=== PATIENT | male | born 1945 | race Caucasian/White ===

== ENCOUNTER 2021-10-27 15:00 | Outpatient (RCR) | payer MEDICARE, BC, SELFPAY ==
[2021-10-24 11:31] LABS: Basophils Absolute Auto 0.02 K/uL (0.00-0.30); Basophils Percent Auto 0.3 % (0.0-3.0); Eosinophils Absolute Auto 0.16 K/uL (0.00-0.50); Eosinophils Percent Auto 2.7 % (0.0-7.0); Hematocrit 35.1 % (37.0-53.0); Hemoglobin* 11.5 gm/dL (13.5-17.5); Immature Granulocytes Abs Auto 0.02 K/uL (0.00-0.30); Lymphocytes Percent Auto 17.8 % (20-44); Mean Corpuscular HGB Conc 33 gm/dL (32-36); Mean Corpuscular Hemoglobin 29 pg (26-34); Mean Corpuscular Volume 89 fL (80-100); Monocytes Percent Auto 7.5 % (0.0-11.0); Neutrophils Absolute Auto 4.15 K/uL (1.7-7.0); Neutrophils Percent Auto 71.4 % (42.0-72.0); Platelet Count* 195 K/uL (140-440); RDW Coefficient of Variation % 13.6 % (11.5-15.5); Red Blood Count 3.94 m/uL (4.30-5.90); White Blood Count* 5.83 K/uL (4.50-11.00)
[2021-10-24 11:35] LABS: Slide Review Reflex No
[2021-10-24 11:57] LABS: Chloride* 109 mmol/L (96-114)
[2021-10-24 11:58] LABS: Albumin* 4.2 g/dL (3.3-5.0); Potassium* 4.1 mmol/L (3.6-5.1); Sodium* 141 mmol/L (135-149)
[2021-10-24 12:00] LABS: Creatinine* 1.5 mg/dL (0.5-1.5); Estimated Glomerular Filt Rate 48 ml/min
[2021-10-24 12:01] LABS: Alanine Aminotransferase* 20 U/L (4-50); Alkaline Phosphatase* 82 U/L (40-150); Aspartate Amino Transferase* 27 U/L (12-35); Bilirubin Total* 0.6 mg/dL (0.1-1.5); Blood Urea Nitrogen* 18 mg/dL (7-30); Carbon Dioxide* 22 mmol/L (20-32); Glucose* 118 mg/dL (60-115)
[2021-10-24 12:34] LABS: PSA Diagnostic* < 0.06 ng/mL (0.10-4.00)
--- NOTE | 2021-11-13 13:47 | ONC.NURNOTE ---
Pt called last week asking if ok to go off his Megestrol BID for hot flashes, as he no longer has hot flashes. Reviewed with Olga Castellon CNP; ok to stop Megestrol, but if hot flashes return he can resume it. Pt to contact us if he resumes it if he needs refills; pt agreeable to this plan.
--- NOTE | 2022-04-01 10:40 | ONC.NURNOTE ---
Patient due for next injection on 04/25/2022, but having septoplasty on 04/24/2022. He is uncomfortable having injection same day as surgery and too soon after surgery. Labs scheduled for after surgery and meet with provider on 05/05 prior to injection to determine safety for patient comfort.
== END 2022-04-22 23:59 | disposition home or self-care (01) ==
LOC: CCIC 15:00
PROVIDERS: Visit Provider Clinical Nurse Specialist
DX: C61 Malignant neoplasm of prostate (principal); Z79.818 Long term (current) use of other agents affecting estrogen receptors and estrogen levels
CPT/HCPCS: 36415; 80053; 84153; 85025; 96401; 99212; 99214; 99215; J9217

== ENCOUNTER 2022-05-12 11:30 | Outpatient (RCR) | payer MEDICARE, BC, SELFPAY ==
[2022-04-30 10:57] LABS: Basophils Absolute Auto 0.02 K/uL (0.00-0.30); Basophils Percent Auto 0.3 % (0.0-3.0); Eosinophils Percent Auto 2.6 % (0.0-7.0); Hematocrit 37.4 % (37.0-53.0); Hemoglobin* 12.5 gm/dL (13.5-17.5); Immature Granulocytes Abs Auto 0.03 K/uL (0.00-0.30); Immature Granulocytes Pct Auto 0.4 %; Lymphocytes Absolute Auto 1.61 K/uL (0.90-2.90); Lymphocytes Percent Auto 20.8 % (20-44); Mean Corpuscular HGB Conc 33 gm/dL (32-36); Mean Corpuscular Hemoglobin 31 pg (26-34); Mean Corpuscular Volume 92 fL (80-100); Monocytes Percent Auto 9.7 % (0.0-11.0); Neutrophils Absolute Auto 5.12 K/uL (1.7-7.0); Neutrophils Percent Auto 66.2 % (42.0-72.0); Platelet Count* 202 K/uL (140-440); RDW Coefficient of Variation % 12.8 % (11.5-15.5); Red Blood Count 4.08 m/uL (4.30-5.90); White Blood Count* 7.73 K/uL (4.50-11.00)
[2022-04-30 11:00] LABS: Slide Review Reflex No
[2022-04-30 11:12] LABS: Chloride* 107 mmol/L (96-114); Potassium* 4.3 mmol/L (3.6-5.1); Sodium* 137 mmol/L (135-149)
[2022-04-30 11:14] LABS: Creatinine* 1.3 mg/dL (0.5-1.5); Estimated Glomerular Filt Rate 57 ml/min
[2022-04-30 11:15] LABS: Blood Urea Nitrogen* 25 mg/dL (7-30); Carbon Dioxide* 23 mmol/L (20-32); Glucose* 89 mg/dL (60-115)
[2022-04-30 11:16] LABS: Calcium* 9.1 mg/dL (8.4-10.6)
[2022-04-30 11:53] LABS: PSA Diagnostic* < 0.06 ng/mL (0.10-4.00)
--- NOTE | 2022-05-01 12:35 | URNOTE ---
REceived request for prior auth for Richard [id number]. Pt has medicare and [place]. Prior authorization is not required as services are based on medical necessity and follow medicare guidelines
[2022-05-05 09:20] VITALS: BP 154/74; PULSE 89; RESP 16; TEMP 37; O2SAT 99
--- NOTE | 2022-06-18 16:47 | ONC.NURNOTE ---
Don states needs refill on Megestrol 20mg BID. states has 14 left. note. new pharmacy [facility] [place] at .
== END 2022-10-27 23:59 | disposition home or self-care (01) ==
LOC: CCIC 11:30
PROVIDERS: Internal Medicine Medical Oncology; PCP Clinical Nurse Specialist; Visit Provider Internal Medicine Hematology & Oncology
DX: C61 Malignant neoplasm of prostate (principal); C79.51 Secondary malignant neoplasm of bone; Z79.818 Long term (current) use of other agents affecting estrogen receptors and estrogen levels; R25.1 Tremor, unspecified
CPT/HCPCS: 36415; 80048; 84153; 85025; 96401; 99212; 99214; J9217

== ENCOUNTER 2022-06-18 12:36 | Outpatient (CLI) | payer MEDICARE, BC, SELFPAY ==
--- NOTE | 2022-06-18 13:00 | CRLHL7_ITS ---
For Patients: As a result of the Century Cures Act, medical imaging exams and procedure reports are released immediately into your electronic medical record. You may view this report before your referring provider. If you have questions, please contact your health care provider. DXA BONE MINERAL DENSITY STUDY Current height (in): 71.0. Weight (lb): 217.0. Menopause age: N/A. Ethnicity: White. Reason for exam: Androgen deprivation therapy. 1. Have you had a previous hip or vertebral fracture? No. 2. Have you had any fractures during your adult life which did not result from significant trauma (e.g., auto accident)? No. 3. Did either of your parents have a hip fracture? Yes. 4. Do you smoke? No. 5. Have you ever taken Glucocorticoids? No. 6. Do you have rheumatoid arthritis? No. 7. Do you have secondary osteoporosis? No. 8. Do you drink 3 or more alcoholic drinks per day? No. 9. Are you being treated for osteoporosis? No. 10. Have you ever taken any of the following medications: Actonel, Evista, Fosamax, Miacalcin, Reclast, Boniva, Forteo, HRT (i.e. estrogen/hormone therapy), Protelos, Prolia, Vitamin D, Calcium, other ??? please specify. ANSWER: Yes, vitamin D, calcium. 11. Do you have any of the following medical conditions: Anorexia or bulimia, asthma or emphysema, end stage renal disease, hyperparathyroidism, any seizure disorders, cancer, inflammatory bowel diseases, hysterectomy, other ??? please specify. ANSWER: Yes, cancer. 12. What was your maximum height (inches)? 72. 13. Do you perform weight bearing exercise regularly? No. 14. Do you regularly consume dairy products? Yes. 15. Do you drink caffeinated beverages? Yes. TECHNIQUE: Bone mineral density study was performed using the [employer]. FINDINGS: The results of the study expressed as bone mineral density (BMD) are as follows: Lumbar spine L1 to L4: BMD: 1.088 g/cm2. T-score: 0.0. Z-score: 1.0. Neck Left: BMD: 0.787 g/cm2. T-score: -1.1. Z-score: 0.3. Right: BMD: 0.762 g/cm2. T-score: -1.2. Z-score: 0.1. Total Left: BMD: 0.947 g/cm2. T-score: -0.6. Z-score: 0.3. Right: BMD: 0.918 g/cm2. T-score: -0.8. Z-score: 0.1. IMPRESSION: Osteopenia. FRAX 10-year Fracture Risk Major Osteoporotic Fracture: 11 percent Hip Fracture: 6.7 percent Reported Risk Factors: [place] () Neck BMD = 0.762, BMI = 30.3 Dm Ortega M.D. Diagnostic Radiologist [email or web address] Transcribed: 10:34 a.m. DW/Dictated by: Dm Ortega MD @ 06/19/2022 10:07:00 AM (Electronically Signed)
== END 2022-06-18 12:37 | disposition home or self-care (01) ==
LOC: RAD 12:38
PROVIDERS: Visit Provider Internal Medicine Hematology & Oncology
DX: Z79.818 Long term (current) use of other agents affecting estrogen receptors and estrogen levels (principal); M85.89 Other specified disorders of bone density and structure, multiple sites
CPT/HCPCS: 77080

== ENCOUNTER 2023-03-01 10:33 | Outpatient (CLI) | payer MEDICARE, BC, SELFPAY ==
--- OUTSIDE RECORDS SUMMARY | 2023-03-01 10:45 | XMS_ITS | Clinical Summary ---
Author Name Unknown Organization [facility] Address [address] [place] [address] Care Team Providers Care Manager Meat Name Role Phone StanleySaroj Bethany Primary Care Provider [phone] Source Comments You are receiving this document as you are listed as the primary care provider,follow-up provider, or the patient has been referred to you for consultation.This is in compliance with the Medicare and[facility] Hospital[facility] EHR Incentive Program,which states Providers who transition their patient to another setting of careor provider of care or refers their patient to another provider of care shouldprovide summary care record for each transition of care or referral. [facility] Active Problems Problem Noted Date Diagnosed Date Trigger ring finger of right hand 01/29/2023 Trigger middle finger of right hand 01/29/2023 Encounters Date Type Department Care Team Description 02/03/2023 [facility]phone [facility] [address] [place] [address] Ramiro Danielle MD Surgery, To Schedule 01/29/2023 1:40 PM SECRETARY BOOK KEEPER Office Visit [place] [facility] [address] [facility] [place] [address] Ramrio Danielle MD Trigger ring finger of right hand (Primary Dx); Trigger middle finger of right hand; Trigger ring finger of left hand from Last 3 Months Social History Tobacco Use Types Packs/Day Years Used Date Smoking Tobacco: Never Assessed Sex and Gender Information Value Date Recorded Sex Assigned at Not on file Gender Identity Not on file Sexual Orientation Not on file Plan of Treatment Upcoming Encounters Date Type Department Care Team Description 03/11/2023 10:00 AM SECRETARY BOOK KEEPER Appointment [facility] [address] [place] [phone] Jenn Haley, OTR/L [address] [facility] [address] [place] [place] [id number] 04/13/2023 10:40 AM SECRETARY BOOK KEEPER Appointment [facility] [address] [place] [address] Ramiro Danielle MD [address] [facility] [address] [place], [place] [phone] Scheduled Procedures Name Priority Associated Diagnoses Date/Ti me RELEASE TRIGGER FINGER Trigger ring finger of right hand Trigger middle finger of right hand Health Maintenance Due Date Last Done Comments Hep C Screening (Preventive Services) 1945 Medicare Annual Wellness Visit 1945 COVID-19 Vaccine (#1) 1945 DTaP/Tdap/Td (3 - Tdap) 03/31/2031 03/31/2021, 02/25 Pneumococcal 65+ Yrs Completed 01/14/2015, 07/11/19 12 Zoster/Shingles Completed 11/04/2019, 08/15, 12/24/2011 Influenza Completed 11/19/2022, 03/2021, 11/24/2020, Additional history exists HepA Aged Out No longer eligi ble based on patient's age to complete this topic HepB Aged Out No longer eligi ble based on patient's age to complete this topic Hib Aged Out No longer eligi ble based on patient's age to complete this topic IPV (Polio) Aged Out No longer eligi ble based on patient's age to complete this topic MCV4 Aged Out No longer eligi ble based on patient's age to complete this topic Care Teams Manager Meat Relationship Specialty Start Date End Date Saroj Angel DO [address] [place] [address] PCP - General Family Practice 06/12/22
--- OUTSIDE RECORDS SUMMARY | 2023-03-01 10:45 | XMS_ITS | Clinical Summary ---
Author Name Unknown Organization [employer] Address [address] [place] [address] Care Team Providers Care Family Services Assistant Name Role Phone Provider, No Primary Primary Care Provider Unava ilable Allergies No known active allergies Medications Medication Sig Dispensed Refills Start Date End Date Status MULTIVITAMIN ORAL Take 1 Tablet by mouth once daily. 0 Active atorvastatin (LIPITOR) 20 mg oral Tablet Take 1 Tablet (20 mg) by mouth in the morning. 0 05/08/2022 Active losartan (COZAAR) 25 mg oral Tablet Take 0.5 Tablets (12.5 mg) by mouth in the morning. 0 08/19/2022 Active tamsulosin (FLOMAX) 0.4 mg oral Capsule 0 01/26/2023 Activ e amLODIPine (NORVASC) 2.5 mg oral Tablet 0 01/20/2023 Active calcium citrate 250 mg calcium oral Tablet Take 2 Tablets (500 mg) by mouth in the morning and 2 Tablets (500 mg) in the evening. 0 Active metoclopramide HCl (REGLAN) 5 mg oral Tablet take 1 tablet by oral route 30 minutes before each prep session 0 02/23/2022 Active omeprazole (PRILOSEC) 20 mg oral Capsule, Delayed Release(E.C.) 0 01/24/2023 Active citalopram (CELEXA) 20 mg oral Tablet 0 01/19/2023 Active megestroL (MEGACE) 20 mg oral Tablet TAKE 1 TABLET BY MOUTH TWICE DAILY NEEDED FOR HOT FLASHES FROM [facility]ROGEN DEPRIVATION THERAPY. 0 06/29/2022 Active Encounters Date Type Department Care Team Description 02/06/2023 1:46 PM REGISTERED MIDWIFE - 02/06/2023 11:59 PM REGISTERED MIDWIFE Hospital Encounter [facility] [address] [facility] [place] [phone] Beka Hester APRN, CNP Discharge Disposition: Discharge Home 02/06/2023 1:20 PM REGISTERED MIDWIFE Office Visit [facility] Walk In [address] [facility] [place] [phone] Beka Hester APRN, CNP Dx: Acute cough (Primary Dx) 02/06/2023 Travel from Last 3 Months Social History Tobacco Use Types Packs/Day Years Used Date Smoking Tobacco: Never Smokeless Tobacco: Never Tobacco Cessation:Counseling Given: Not Answered Depression (PHQ-9) Answer Date Recorded Last PHQ-9 Score Not on file 02/06/2023 Thoughts of self harm Not on file 02/06/2023 Sex and Gender Information Value Date Recorded Sex Assigned at Not on file Gender Identity Not on file Sexual Orientation Not on file Last Filed Vital Signs Vital Sign Reading Time Taken Comments Blood Pressure 124/70 02/06/2023 2:21 PM REGISTERED MIDWIFE Pulse 90 02/06/2023 2:21 PM REGISTERED MIDWIFE Temperature 36.8 ??C (98.3 ??F) 02/06/2023 2:21 PM CS T Respiratory Rate 16 02/06/2023 2:21 PM REGISTERED MIDWIFE Oxygen Saturation 96% 02/06/2023 2:21 PM REGISTERED MIDWIFE Inhaled Oxygen Concentration - - Weight - - Height - - Body Mass Index - - Plan of Treatment Health Maintenance Due Date Last Done Comments Hepatitis C Testing 1945 PHQ-9 Depression Screening 1957 Medicare Annual Visit 11/12/2023 11/11/2022 , 10/29/2021, 09/09/2020 Lipids Standard 11/12/2027 11/11/2022, 10/16, 09/09/2020, Additional history exists DTaP/Tdap/Td Vaccines (3 - Td or Tdap) 03/31/2031 03/31/2021, 02/25/2010 Pneumococcal Vaccine (65+ Years) Completed 01/14/2015, 07/11/2011 Varicella Zoster Sequential Completed 10/16, 08/28/2019, 12/24/2011 Influenza Vaccine Completed 11/19/2022, , 11/24/2020, Additional history exists COVID-19 Vaccine Completed 12/23/2022, , 11/11/2021, Additional history exists HIB Vaccines Aged Out No longer eligi ble based on patient's age to complete this topic HPV Vaccines Aged Out No longer eligi ble based on patient's age to complete this topic Hepatitis A Vaccines Aged Out No long er eligible based on patient's age to complete this topic Hepatitis B Vaccines Aged Out No long er eligible based on patient's age to complete this topic Meningococcal Vaccines Aged Out No lo nger eligible based on patient's age to complete this topic Procedures Procedure Name Priority Date/Time Associated Diagnosis Comments INFLUENZA A/B, RSV AND COVID-19/SARS-COV2, PCR STAT 02/06/2023 2:46 PM REGISTERED MIDWIFE Acute cough from Last 3 Months Results * (ABNORMAL) INFLUENZA A/B, RSV AND COVID-19/SARS-COV2, PCR (02/06/2023 2:46 PM REGISTERED MIDWIFE) COVID-19/SARS- CoV, PCR Negative Negative CEPHEID GENEXPERT 02/06/2023 3:43 PM REGISTERED MIDWIFE [facility] Influenza A, PCR Positive(A) Negative CEPHEID GENEXPERT 02/06/2023 3:43 PM REGISTERED MIDWIFE [facility] Influenza B, PCR Negative Negative CEPHEID GENEXPERT 02/06/2023 3:43 PM REGISTERED MIDWIFE [facility] Respiratory Syncytial Virus, PCR Negative Negative CEPHEID GENEXPERT 02/06/2023 3:43 PM REGISTERED MIDWIFE [facility] Swab NASOPHARYNGEAL STRUCTURE / Unknown Non-blood Collection / Unknown 02/06/2023 2:46 PM REGISTERED MIDWIFE 02/06/2023 3:04 PM REGISTERED MIDWIFE Narrative [facility] - 02/06/2023 3:43 PM REGISTERED MIDWIFE This test has been authorized by the FDA under an EUA for use by authorized laboratories. Fact sheets for this Emergency Use Authorization (EUA) assay can be found by using the following web addresses: Healthcare Providers: https://www.Celtaxsys.gov/media/273266/download Patients: https://www.fda.gov/media/573423/download Beka Hester APRN,ROUSTABOUT HAND LAB MOLECUL AR ORDERABLES [facility] [address] [place] [address], from Last 3 Months Additional Health Concerns Infection Onset Date Last Indicated Influenza 02/06/2023 02/06/2023 Care Teams Family Services Assistant Relationship Specialty Start Date End Date Provider, No Primary . [place] [address] PCP - General 02/06/23 Additional Source Comments PLEASE NOTE: Replies to this message will not be received.[facility]
--- OUTSIDE RECORDS SUMMARY | 2023-03-01 10:45 | XMS_ITS | Encounter Summary ---
Author Name Unknown Organization [employer] Address [address] [place] [address] Care Team Providers Care Tearer Press Clipping Name Role Phone Provider, No Primary Primary Care Provider Unava ilable Reason for Visit * Reason Comments Cough Symptoms started yes terday. Chest congestion. Neck and shoulders stiff. Chest congestion Encounter Details Date Type Department Care Team Description 02/06/2023 1:20 PM PRESS OFFBEARER Office Visit [facility] Walk In [address] [place] [phone] Beka Hester, MILK RECEIVER TANK TRUCK,COTTON BAG SEWER [address] [place] [phone] Dx: Acute cough (Primary Dx) Social History Tobacco Use Types Packs/Day Years Used Date Smoking Tobacco: Never Smokeless Tobacco: Never Tobacco Cessation:Counseling Given: Not Answered Depression (PHQ-9) Answer Date Recorded Last PHQ-9 Score Not on file 02/06/2023 Thoughts of self harm Not on file 02/06/2023 Sex and Gender Information Value Date Recorded Sex Assigned at Not on file Gender Identity Not on file Sexual Orientation Not on file documented as of this encounter Last Filed Vital Signs Vital Sign Reading Time Taken Comments Blood Pressure 124/70 02/06/2023 2:21 PM PRESS OFFBEARER Pulse 90 02/06/2023 2:21 PM PRESS OFFBEARER Temperature 36.8 ??C (98.3 ??F) 02/06/2023 2:21 PM CS T Respiratory Rate 16 02/06/2023 2:21 PM PRESS OFFBEARER Oxygen Saturation 96% 02/06/2023 2:21 PM PRESS OFFBEARER Inhaled Oxygen Concentration - - Weight - - Height - - Body Mass Index - - documented in this encounter Progress Notes * Beka Hester, MILK RECEIVER TANK TRUCK,COTTON BAG SEWER - 02/06/2023 1:20 PM CST DENNIS Tilley is a 77 Y male. Patient is here, with his , he is here with concerns of cough. Patient stated the cough startedyesterday. Patient stated the cough is not causing any shortness of breath or trouble breathing. Hedenies any congestion, runny nose, or fevers. Patient stated he is also been having some body achesin his shoulder and neck area. Patient has been taking Tylenol to treat the symptoms. Review of Systems Constitutional: Negative for fever. HENT: Negative for congestion and rhinorrhea. Respiratory: Positive for cough. Negative for shortness of breath and wheezing. Musculoskeletal: Positive for myalgias. All other systems reviewed and are negative. Konstantin's history was not reviewed today. OBJECTIVE BP 124/70 (BP Source: R arm, BP position: Sitting) Pulse 90 Temp 98.3 ??F (36.8 ??C) Resp 16 SpO2 96% Physical Exam Vitals and nursing note reviewed. Constitutional: Appearance: Normal appearance. He is not ill-appearing or diaphoretic. Cardiovascular: Rate and Rhythm: Normal rate and regular rhythm. Heart sounds: Normal heart sounds. Pulmonary: Effort: Pulmonary effort is normal. Breath sounds: Normal breath sounds. No wheezing or rhonchi. Neurological: Mental Status: He is alert. Psychiatric: Mood and Affect: Mood normal. Behavior: Behavior normal. Recent Results (from the past 120 hour(s)) INFLUENZA A/B, RSV AND COVID-19/SARS-COV2, PCR Specimen: Nasopharynx; Swab Result Value Ref Range COVID-19/SARS-CoV, PCR Negative Negative Influenza A, PCR Positive (A) Negative Influenza B, PCR Negative Negative Respiratory Syncytial Virus, PCR Negative Negative ASSESSMENT & PLAN 1. Acute cough INFLUENZA A/B, RSV AND COVID-19/SARS-COV2, PCR The plan: Patient's vital signs are reassuring and patient is afebrile during clinic visit today. Patient's lungs are clear without wheezing or rhonchi. Oxygen is 96% on room air. We did test patient for COVID, influenza, and RSV in the clinic today and will call patient with results and further recommendations. If COVID is positive patient is interested in antiviral medications. Patient should continue symptomatic treatment of Tylenol for fever and discomfort, [id number] cough and cold medicationsas needed, increase fluids, and rest. Patient should follow-up if symptoms worsen or do not improve. Patient agreed to plan of care. PLEASE NOTE: The examination of treatment that you have received in Urgent Care have been rendered on a problem specific basis. The examination and treatment were not intended to be a substitute for routine medical care and were an effort to provide complete medical service. It is important that you be examined again as recommended and report any new or persisting problems at that time. It is impossible to recognize and treat all elements of an injury or illness in a simple Urgent Care visit. If x-ray was done, it was read on a preliminary basis and final review with be made by a Radiologist.You will be notified if there were any additional findings. If labs were done, you will be informedof those results once that have all been reviewed, unless otherwise stated. Also, part of this chart was done using speech recognition software. New medication(s) reviewed if prescribed, patient and/or family verbalized understanding, and denied additional questions. Beka Hester APRN, CNP No follow-ups on file. S OFFBEARER documented in this encounter Plan of Treatment Not on file documented as of this encounter Procedures Procedure Name Priority Date/Time Associated Diagnosis Comments INFLUENZA A/B, RSV AND COVID-19/SARS-COV2, PCR STAT 02/06/2023 2:46 PM PRESS OFFBEARER Acute cough documented in this encounter Results * (ABNORMAL) INFLUENZA A/B, RSV AND COVID-19/SARS-COV2, PCR (02/06/2023 2:46 PM PRESS OFFBEARER) Pathologist [facility] COVID-19/SARS- CoV, PCR Negative Negative CEPHEID GENEXPERT 02/06/2023 3:43 PM PRESS OFFBEARER [facility] Influenza A, PCR Positive(A) Negative CEPHEID GENEXPERT 02/06/2023 3:43 PM PRESS OFFBEARER [facility] Influenza B, PCR Negative Negative CEPHEID GENEXPERT 02/06/2023 3:43 PM PRESS OFFBEARER [facility] Respiratory Syncytial Virus, PCR Negative Negative CEPHEID GENEXPERT 02/06/2023 3:43 PM PRESS OFFBEARER [facility] Swab NASOPHARYNGEAL STRUCTURE / Unknown Non-blood Collection / Unknown 02/06/2023 2:46 PM PRESS OFFBEARER 02/06/2023 3:04 PM PRESS OFFBEARER Narrative [facility] - 02/06/2023 3:43 PM PRESS OFFBEARER This test has been authorized by the FDA under an EUA for use by authorized laboratories. Fact sheets for this Emergency Use Authorization (EUA) assay can be found by using the following web addresses: Healthcare Providers: https://www.fda.gov/media/312525/download Patients: https://www.fda.gov/media/798702/download Beka Hester APRN, CNP LAB MOLECUL AR ORDERABLES [facility] [address] [place] [address], documented in this encounter Visit Diagnoses Diagnosis Acute cough- Primary documented in this encounter Additional Health Concerns Infection Onset Date Last Indicated Resolved Time COVID-19 Rule Out 02/06/2023 02/06/2023 02/06/2023 3:43 PM PRESS OFFBEARER documented as of this encounter Care Teams Tearer Press Clipping Relationship Specialty Start Date End Date Provider, No Primary . [place] [address] PCP - General 02/06/23 documented as of this encounter Additional Source Comments PLEASE NOTE: Replies to this message will not be received.[facility]
--- OUTSIDE RECORDS SUMMARY | 2023-03-01 10:45 | XMS_ITS | Encounter Summary ---
Author Name Unknown Organization [employer] [facility] Address [facility] [place] [address] Care Team Providers Care Assistant Film Editor Name Role Phone Provider, No Primary Primary Care Provider Unava ilable Encounter Details Date Type Department Care Team Description 02/06/2023 Travel Social History Tobacco Use Types Packs/Day Years Used Date Smoking Tobacco: Never Smokeless Tobacco: Never Depression (PHQ-9) Answer Date Recorded Last PHQ-9 Score Not on file 02/06/2023 Thoughts of self harm Not on file 02/06/2023 Sex and Gender Information Value Date Recorded Sex Assigned at Not on file Gender Identity Not on file Sexual Orientation Not on file documented as of this encounter Plan of Treatment Not on file documented as of this encounter Visit Diagnoses Not on filedocumented in this encounter Additional Health Concerns Infection Onset Date Last Indicated Resolved Time COVID-19 Rule Out 02/06/2023 02/06/2023 02/06/2023 3:43 PM INVESTIGATION DIVISION CAPTAIN Influenza 02/06/2023 02/06/2023 documented as of this encounter Care Teams Assistant Film Editor Relationship Specialty Start Date End Date Provider, No Primary . [place] [address] PCP - General 02/06/23 documented as of this encounter Additional Source Comments PLEASE NOTE: Replies to this message will not be received.[facility] [employer] [facility]
--- OUTSIDE RECORDS SUMMARY | 2023-03-01 10:45 | XMS_ITS | Encounter Summary ---
Author Name Unknown Organization [facility] Address [address] [place] [address] Care Team Providers Care Prison Teacher Name Role Phone Provider, No Primary Primary Care Provider Unava ilable Encounter Details Date Type Department Care Team Description 02/06/2023 1:46 PM DRY CAN TENDER - 02/06/2023 11:59 PM DRY CAN TENDER Hospital Encounter [facility] [address] [place] [phone] Beka Hester, HOB MACHINE OPERATOR,MUSIC THEORY TEACHER [address] [place] [phone] Discharge Disposition: Discharge Home Social History Tobacco Use Types Packs/Day Years Used Date Smoking Tobacco: Never Smokeless Tobacco: Never Depression (PHQ-9) Answer Date Recorded Last PHQ-9 Score Not on file 02/06/2023 Thoughts of self harm Not on file 02/06/2023 Sex and Gender Information Value Date Recorded Sex Assigned at Not on file Gender Identity Not on file Sexual Orientation Not on file documented as of this encounter Medications at Time of Discharge Medication Sig Dispensed Refills Start Date End Date amLODIPine (NORVASC) 2.5 mg oral Tablet 0 01/20/2023 atorvastatin (LIPITOR) 20 mg oral Tablet Take 1 Tablet (20 mg) by mouth in the morning. 0 05/08/2022 calcium citrate 250 mg calcium oral Tablet Take 2 Tablets (500 mg) by mouth in the morning and 2 Tablets (500 mg) in the evening. 0 citalopram (CELEXA) 20 mg oral Tablet 0 01/19/2023 losartan (COZAAR) 25 mg oral Tablet Take 0.5 Tablets (12.5 mg) by mouth in the morning. 0 08/19/2022 megestroL (MEGACE) 20 mg oral Tablet TAKE 1 TABLET BY MOUTH TWICE DAILY NEEDED FOR HOT FLASHES FROM ANDROGEN DEPRIVATION THERAPY. 0 06/29/2022 metoclopramide HCl (REGLAN) 5 mg oral Tablet take 1 tablet by oral route 30 minutes before each prep session 0 02/23/2022 MULTIVITAMIN ORAL Take 1 Tablet by mouth once daily. 0 omeprazole (PRILOSEC) 20 mg oral Capsule, Delayed Release(E.C.) 0 01/24/2023 tamsulosin (FLOMAX) 0.4 mg oral Capsule 0 01/26/2023 documented as of this encounter Plan of Treatment Not on file documented as of this encounter Visit Diagnoses Not on filedocumented in this encounter Additional Health Concerns Infection Onset Date Last Indicated Resolved Time COVID-19 Rule Out 02/06/2023 02/06/2023 02/06/2023 3:43 PM DRY CAN TENDER Influenza 02/06/2023 02/06/2023 documented as of this encounter Care Teams Prison Teacher Relationship Specialty Start Date End Date Provider, No Primary . [place] [id number] PCP - General 02/06/23 documented as of this encounter Additional Source Comments PLEASE NOTE: Replies to this message will not be received.[facility]
--- OUTSIDE RECORDS SUMMARY | 2023-03-01 10:45 | XMS_ITS | Encounter Summary ---
Author Name Unknown Organization [facility] Address [address] [place] [address] Care Team Providers Care Manufacturing Project Manager Name Role Phone Saroj Angel DO Primary Care Provider [phone] Reason for Visit * Reason Comments Surgery, To Schedule Encounter Details Date Type Department Care Team Description 02/03/2023 Telephone [facility] [address] [place] [phone] Ramiro Danielle MD [address] [facility] [address] [place] [address] Surgery, To Schedule Social History Tobacco Use Types Packs/Day Years Used Date Smoking Tobacco: Never Assessed Sex and Gender Information Value Date Recorded Sex Assigned at Not on file Gender Identity Not on file Sexual Orientation Not on file documented as of this encounter Nursing Notes * Zenia Klein - 02/03/2023 4:02 PM CST LVM for Don regarding surgery -- provided date options and asked him to call back. Provided our direct call back #. Thank you CD TOBACCO BULKER * Zenia Klein - 02/03/2023 10:56 AM CST LVM for patient regarding surgery - provided our call back # Thank you CD TOBACCO BULKER documented in this encounter Plan of Treatment Upcoming Encounters Date Type Department Care Team Description 03/11/2023 10:00 AM CUT TOBACCO BULKER Appointment [facility] [address] [place] [phone] Jenn Haley, OTR/L [address] [place], [place] [phone] 04/13/2023 10:40 AM CUT TOBACCO BULKER Appointment [facility] [address] [place] [phone] Ramiro Danielle MD [address] [facility] [address] [place] [address] Scheduled Procedures Name Priority Associated Diagnoses Date/Ti me RELEASE TRIGGER FINGER Trigger ring finger of right hand Trigger middle finger of right hand documented as of this encounter Visit Diagnoses Not on filedocumented in this encounter Care Teams Manufacturing Project Manager Relationship Specialty Start Date End Date Saroj Angel DO [address] [facility] [address] [place] [address] PCP - General Family Practice 06/12/22 documented as of this encounter
--- OUTSIDE RECORDS SUMMARY | 2023-03-01 10:45 | XMS_ITS | Clinical Summary ---
Author Name Unknown Organization [facility] Address [place], [place] [address] Care Team Providers Care Boom Conveyor Operator Name Role Phone Stanley Saroj Brenna Primary Care Provide r [place] Unavailable Allergies Active Allergy Reactions Criticality Noted Date Comments Fluconazole Hives 06/09/2017 Pollen Extracts Rash 09/22/2017 Medications Medication Sig Dispensed Refills Start Date End Date Status MULTIVITAMIN ORAL Take 1 Tab by mouth. 0 Active ascorbic acid, vitamin C, (VITAMIN C) 1,000 mg tablet Take 1 tablet by mouth once daily. 0 06/03/2015 Active cholecalciferol (VITAMIN D3) 1,000 unit capsule Take 2 capsules by mouth once daily. 0 02/25/2017 Active Calcium Citrate 250 mg calcium tablet Take 500 mg by mouth 2 times daily. 0 Active polyethylene glycol (MIRALAX; GLYCOLAX) 17 g powder for solution Mix 1 Packet in liquid then take by mouth once daily. 0 06/11/2017 Active leuprolide, 6 month, (Eligard, 6 month,) 45 mg subcutaneous syringe Inject 1 Each (45 mg) subcutaneous one time for 1 dose. To mix the contents of the 2 syringes, refer to Mixing Procedure in package insert. 1 Each 0 02/05/2021 Active atorvastatin (LIPITOR) 20 mg tabletIndications:Mi xed hyperlipidemia Take 1 Tablet (20 mg) by mouth once daily. 90 Tablet 3 05/08/2022 Active amLODIPine (NORVASC) 2.5 mg tabletIndications:Es sential hypertension Take 1 Tablet (2.5 mg) by mouth once daily. 90 Tablet 3 07/01/2022 Active losartan (COZAAR) 25 mg tabletIndications:Es sential hypertension Take 0.5 Tablets (12.5 mg) by mouth once daily. 45 Tablet 3 08/19/2022 Active omeprazole (PRILOSEC) 20 mg Delayed-Release capsuleIndications:C hronic GERD Take 1 Capsule (20 mg) by mouth once daily before a meal. 90 Capsule 1 10/27/2022 Active citalopram (CELEXA) 20 mg tabletIndications:Ot her depression Take 1 Tablet (20 mg) by mouth once daily. 90 Tablet 3 11/11/2022 Active megestroL (MEGACE) 20 mg tablet once daily if needed. ONLY NEEDED 0 06/29/2022 Active tamsulosin (FLOMAX) 0.4 mg capsuleIndications:B PH with urinary obstruction Take 1 Capsule (0.4 mg) by mouth once daily in the afternoon. 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 1 Hyperlipidemia 01/27/2013 Esophagus, Mcwilliams's 01/27/2013 Depression 01/27/2013 Family history of coronary artery disease 2011 Colon polyp Overview: Repeat colonoscopy 07/2022 Resolved Problems Problem Noted Date Diagnosed Date Resolved Date Hematuria 06/09/2017 04/29/2018 Prostate cancer 05/18/2013 04/29/2018 Dizziness 01/27/2013 04/29/2018 Nausea & vomiting 01/27/2013 04/29/2018 Chest pain, midsternal 07/11/201104/29 Elevated blood pressure read ing without diagnosis of hypertension 07/11/2011 04/29/2018 Encounters Date Type Department Care Team Description 02/17/2023 Lab Requisition [facility] [phone] Unknown, Doctor 01/27/2023 10:30 AM MACHINE REBUILDER Orders Only [facility] [address] [place] [address] Lab 01/27/2023 Travel 12/23/2022 1:00 PM MACHINE REBUILDER Nurse/Clinic Staff Only [facility] [address] [place] [address] Immunization/Inject ion (COVID-19 vaccine) 12/23/2022 Travel from Last 3 Months Immunizations Name Administration Dates Next Due AMB INFLUENZA IIV3 (AGE 65+ YRS) PF (Flu Clinic Only) 11/20/2016 AMB Influenza, IIV4 PF (=>6 mos Flulaval,Fluzone Fluarix)(Flu Clinic Only) 11/29/2017 COVID-19 Vaccine Spikevax (M oderna 50mcg/0.5mL) 12YO+ [id number] Formula PF 12/23/2022 COVID-19 vaccine (Moderna 10 0mcg/0.5mL) PF, MDV 10/14/2020,05/03/2020,04/05/2020 COVID-19 vaccine (Moderna Lamin arnaldo 50mcg/0.25mL) PF, MDV 06/23/2021 COVID-19 vaccine (Pfizer-Bio NTech 30mcg/0.3mL) 12YO+ BIVALENT PF, MDV 09/01/2022,11/11/2021 Influenza A (H1N1), Inactivated 11/27/2012 Influenza, High-dose Inactivated 11/24/2018,10/17,01/14/2015 Influenza, High-dose Quadriv alent Inactivated 11/19/2022,12/17/2021,11/24/2020 Influenza, IIV3 (Age >=3 years) 01/27/2011 Influenza, Inactivated AIIV4 (Age 65+ Years) Preserv Free 11/27/2019 Pneumococcal Poly,23-Valent (Pneumovax) 07/11/19 12 Pneumococcal conj 13-Valent (Prevnar 13) 015 RSV, Bivalent Vaccine Recons tituted (Abrysvo 120MCG/0.5mL) 11/19/2022 Tdap 03/31/2021,02/25/2010 Zoster (Shingrix-RZV, recombinant) 11/04/2019, Zoster (Zostavax-ZVL, live) 12/24/2011 Family History Medical History Relation Name Comments Heart Disease Father Relation Name Status Comments Brother Father (Age 47) CAD, [place] Mother (Age 91) hip fx. Sister 1 Alive copd Sister 2 lung cancer Social History Tobacco Use Types Packs/Day Years Used Date Smoking Tobacco: Never Passive Smoke Exposure: Never Smokeless Tobacco: Never Tobacco Cessation:Counseling Given: Not Answered Alcohol Use Standard Drinks/Week Comments No 0 (1 standard drink = 0.6 oz pur e alcohol) PHQ-2 Answer Date Recorded PHQ-2 TOTAL SCORE 0 11/11/2022 Social Connections Answer Date Recorded Frequency of Communication with Friends and Fami ly Not on file 10/30/2022 Financial Resource Strain Answer Date R ecorded Difficulty of Paying Living Expenses 3 10/29/2021 Difficulty of Paying Living Expenses Not on file 10/29/2021 Food Insecurity Answer Date Recorded Worried About Running Out of Food in the Last Ye ar 1 10/29/2021 Transportation Needs Answer Date Record ed Lack of Transportation (Medical) 1 10/29/2021 Housing Stability Answer Date Recorded Unable to Pay for Housing in the Last Year 1 10/29/2021 Sex and Gender Information Value Date Recorded Sex Assigned at Not on file Gender Identity Not on file Sexual Orientation Not on file Obstetrics History Last Filed Vital Signs Vital Sign Reading Time Taken Comments Blood Pressure 112/74 11/11/2022 10:49 AM CDT Pulse 86 11/11/2022 10:49 AM CDT Temperature 36.8 ??C (98.3 ??F) 11/11/2022 10:49 AM C DT Respiratory Rate 16 04/24/2022 12:07 PM MACHINE REBUILDER Oxygen Saturation 98% 11/11/2022 10:49 AM CDT Inhaled Oxygen Concentration - - Weight 94.9 kg (209 lb 3.2 oz) 11/11/2022 10:49 AM CDT Height 179.5 cm (5' 10.67) 11/11/2022 10:49 AM CDT Body Mass Index 29.45 11/11/2022 10:49 AM CDT Plan of Treatment Upcoming Encounters Date Type Department Care Team (Latest Contact Info) Description 03/03/2023 10:50 AM MACHINE REBUILDER Hospital Encounter [facility] [address] [facility] [place] [address] [place] [address] [place] [facility] [place] [address] 03/03/2023 10:50 AM MACHINE REBUILDER - 03/03/2023 11:35 AM MACHINE REBUILDER Surgery [facility] [address] [facility] Loni [place] [address] [place] [address] [place] [facility] [place] [address] RELEASE TRIGGER FINGER RIGHT MIDDLE AND RING FINGERS 04/12/2023 1:30 PM MACHINE REBUILDER Office Visit [facility] [address] [place] [address] Steve Mahmood MD [address] [place] [address] [address] [place] [address] Scheduled Procedures Name Priority Associated Diagnoses Date/Ti me RELEASE TRIGGER FINGER Trigger finger, right middle finger Trigger finger, right ring finger 03/03/2023 10:50 AM MACHINE REBUILDER Health Maintenance Due Date Last Done Comments COVID-19 vaccine series ( season) 2023 12/23/2022, 09/01/2022, 11/11/2021, Additional history exists Medicare Wellness for age 65+ 11/11/2023, 10/29/2021, 09/09/2020, Additional history exists BMI (ht and wt on same day) for age 18+ 11/12/2023 11/11/2022, 04/16/2022, 03/26/2022, Additional history exists Depression screening for age 12+ 11/12/2023 11/11/2022, 10/31/2021, 10/29/2021, Additional history exists Tetanus booster 03/31/2031 03/31/2021, 02/25/2010 Pneumococcal series for age 65+ Completed 5, 07/11/2011 Hepatitis C screening for ag e 18-79 Completed 04/29/2018 Zoster (shingles) series for age 50+ Completed 11/04/2019, 08/28/2019, 12/24/2011 Tdap Completed 03/31/2021, 02/25/2010 Influenza for age 65+ Completed 11/19/2022 , 12/17/2021, 11/24/2020, Additional history exists Procedures Procedure Name Priority Date/Time Associated Diagnosis Comments LAB TRACKING EVENT Routine 02/16/2023 2: 00 PM MACHINE REBUILDER PATH URINE CYTOLOGY Routine 02/16/2023 2 :00 PM MACHINE REBUILDER PSA TOTAL (DIAGNOSTIC) Routine 01/27/2023 10:28 AM MACHINE REBUILDER Prostate cancer (HC) from Last 3 Months Results * LAB TRACKING EVENT (02/16/2023 2:00 PM MACHINE REBUILDER) Other (Other) Client Collect / Unknown 02/16/2023 2:00 PM MACHINE REBUILDER 02/17/2023 1:24 PM MACHINE REBUILDER Doctor Unknown LAB BILL ONLY [facility] [address] [place] [address], * PATH URINE CYTOLOGY (02/16/2023 2:00 PM MACHINE REBUILDER) Case Report Medical Cytology Report ? Case: [id number] ? Authorizing Provider: ??Unknown, Doctor ?Collected: ? 02/16/2023 1400 ? Ordering Location: ? [facility] ?Received: ?02/17/2023 1515 ? Pathologist: ? Jose Martin Dunaway Jr., ? MD ? Specimen: ?Urine ? 02/18/2023 10:37 AM [facility]TRAL LABORATORY Final Diagnosis URINE FOR CYTOLOGY: Negative for high grade urothelial carcinoma 02/18/2023 10:37 AM [facility] [employer] [facility] Comment According to the Anabella system of reporting urinary tract cytology, the diagnosis of negative for high grade urothelial carcinoma indicates the sample is composed of benign urothelial cells and that cells that could remotely raise the suspicion of high grade urothelial carcinoma are absent. This does not and cannot exclude the possibility of a low grade urothelial neoplasm. 02/18/2023 10:37 AM [facility] LABORATORY Clinical Information Prostate cancer, new onset hematuria 02/18/2023 10:37 AM [facility] Gross Description A) SOURCE: Urine, Voided The specimen consists of 20 cc of light yellow opaque fluid from which the following is prepared: ? -1 Papanicolaou stained ThinPrep slide 02/18/2023 10:37 AM MACHINE REBUILDER [facility] Microscopic Description All slides were reviewed microscopically. Specimen adequacy: Adequate for interpretation. The microscopic appearance substantiates the diagnosis. 02/18/2023 10:37 AM MACHINE REBUILDER [facility] Additional Information Cytology is screened at [facility] - [address], [place] [address] and [facility] - [address], [place] [address] and [facility] - [address] [place] [address] Interpreted at [facility] - [address], [place] [address] 02/18/2023 10:37 AM MACHINE REBUILDER [facility] Urine URINE SPECIMEN / Unknown 02/16/2023 2:00 PM MACHINE REBUILDER 02/17/2023 3:15 PM MACHINE REBUILDER Doctor Unknown PATHOLOGY/CYTOLOGY Performing Organization Address City/State/[facility] Co de Phone Number [facility] [address] [place] [address], * PSA TOTAL (DIAGNOSTIC) (01/27/2023 10:28 AM MACHINE REBUILDER) PSA TOTAL (DIAGNOSTIC) <0.02 <4.00 ng/mL 01/27/2023 10:04 PM MACHINE REBUILDER [facility] Blood BLOOD SPECIMEN / Unknown Venipuncture / Unknown 01/27/2023 10:28 AM MACHINE REBUILDER 01/27/2023 10:30 AM MACHINE REBUILDER Narrative [employer] - 01/27/2023 10:04 PM MACHINE REBUILDER The test method changed on 08/11/2022. If this test has been used for serial monitoring, rebaselining is recommended. Rebaselining consists of 2 measurements, collected 3-6 weeks apart. The [employer]ney Elecsys total PSA assay is an electrochemiluminescence immunoassay ECLIA performed on the Courtney Elissa e immunoassay analyzers. Values obtained with different assay methods may be different and cannot be used interchangeably. Saroj Angel DO CHEMISTRY [facility] [address] [place] [address], from Last 3 Months Advance Directives Documents on File Type Date Recorded Patient Clothing Supervisor Expl anation Power of Manager Of Change 06/20/2015 9:45 AM [facility] [place], 06/20/15 Latest Code Status on File Code Status Date Activated Date Inactivated Comments Full Code 04/24/2022 9:04 AM 04/24/2022 2:20 PM Question Answer Comments Code Status Discussion: Unable to Assess Preferences, Provider to review later Code Status History Code Status Date Activated Date Inactivated Comments Full Code 06/09/2017 6:26 PM 06/11/2017 5:36 PM Question Answer Comments Code Status Discussion: Per Existing Order Full Code 10/02/2016 6:44 AM 10/02/2016 12:41 PM Full Code 05/18/2013 12:41 AM 05/20/2013 5:01 PM Full Code 01/27/2013 3:41 AM 01/27/2013 1:47 PM Care Teams Boom Conveyor Operator Relationship Specialty Start Date End Date Saroj Angel DO [address] [place] [address] [place] [address] PCP - General Family Practice 11/04/17 Quoc Calle [address] [place] [phone] Oncology Internal Medicine 01/03/20
--- OUTSIDE RECORDS SUMMARY | 2023-03-01 10:45 | XMS_ITS | Encounter Summary ---
Author Name Unknown Organization [facility] Address [address] [place] [address] Care Team Providers Care Board Saw Runner Name Role Phone Saroj Angel DO Primary Care Provider [phone] Reason for Referral * (Routine) - New Request Specialty Diagnoses / Procedures Referred By Contac t Referred To Contact Diagnoses Trigger ring finger of left hand Procedures Betamethasone Acet&Sod Phosp (per 3 mg) Ramiro Danielle MD [address] [address] Referral ID Status Reason Start Date Expiration Date V isits Requested Visits Authorized [id number] New Request 01/29/2023 04/29/2024 1 1 UCT ASSEMBLER * Procedure/Equipment (Routine) - Incomplete Specialty Diagnoses / Procedures Referred By Contac t Referred To Contact Diagnoses Trigger ring finger of right hand Trigger middle finger of right hand Procedures Case Request OR - Orthopedic Surgery: Right middle and ring finger trigger release Ramiro Danielle MD 1601 [facility] 200 [place] [address] Referral ID Status Reason Start Date Expiration Date V isits Requested Visits Authorized [id number] Incomplete 01/29/2023 04/29/2024 1 1 UCT ASSEMBLER Reason for Visit * Reason Comments Follow-up Right hand trigger f angel Encounter Details Date Type Department Care Team Description 01/29/2023 1:40 PM PRODUCT ASSEMBLER Office Visit [place] 1601 Orthopedics 1601 [facility]. [place] [address] Ramiro Danielle MD 1601 [facility] [address] [place] [address] Trigger ring finger of right hand (Primary Dx); Trigger middle finger of right hand; Trigger ring finger of left hand Social History Tobacco Use Types Packs/Day Years Used Date Smoking Tobacco: Never Assessed Sex and Gender Information Value Date Recorded Sex Assigned at Not on file Gender Identity Not on file Sexual Orientation Not on file documented as of this encounter Progress Notes * Ramiro Danielle MD - 01/29/2023 1:40 PM CST Konstantin Lisa [id number] 1945 Date of Visit: 01/29/23 Orthopedic Hand and Upper Extremity Consultation Chief Complaint: Multiple fingers catching Interval history: Konstantin returns today to discuss his hands. He has had relief with his previous injections again but they have returned and he would like to discuss more definitive management at least on the right hand. Today he reports catching and locking of the right middle and ring fingers as well as the left ring finger. Initial History of Present Illness: Konstantin Lisa is a 77 y.o. male who presents for evaluation of his hands. He is dates that back inJanuary he was forcibly shutting a cooler lid and was banging his hand in order to do it. Since that time he developed soreness and subsequently developed triggering of his middle ring and index finger. He has had trigger fingers in the hands in the past and has always been treated with cortisone injections. He presented to Dr. Ambrosio Hernandez office who performed cortisone injections. He is feltlike his symptoms did get better after the injection but maybe only lasted for the first 4 weeks orso. He now reports ongoing catching and locking worse within his middle and ring finger. Occupation/Hobbies: Patient is retired. He stays active by mowing grass and works with his sons yd.He is a nonsmoker. Past Medical/Surgical History: Past medical, social, family history, medications, and allergies were personally reviewed and as per the intake form. Physical Exam: GENERAL: This is a very pleasant 77 y.o. y/o male in no apparent distress. Mood and affect is normal. Alert and oriented x3. PULMONARY: non-labored breathing, symmetrical chest rise, room oxygen CARDIAC: Distal perfusion to the upper extremities is intact, normal rate MUSCULOSKELETAL: Right Hand: Insp/Palp: No deformity bilaterally, hands normal to inspection and palpation. No thenar eminence atrophy. No hypothenar eminence atrophy. Strength: Thumb abduction APB 5/5. 1st dorsal interossei 5/5. Right middle and ring Finger; left ring finger: Insp/Palp: Firm, non-mobile, tender, and nonadherent to the skin mass palmar to the MCP joint. Palpable nodule present at the A1 elina. Triggering is present. Stability: No obvious instability. Strength: Within normal limits. No tenderness or triggering of the remaining fingers. Skin: Skin warm and dry with no evidence of unusual rashes or suspicious lesions. Neuro: Neurovascularly intact at the affected site. Psych: Mood and affect is normal. Cognition: Alert and oriented x3. Memory is intact. Imaging: Radiographs of the right hand- 3 views: 03/22/2022: Outside radiographs of the right hand are reviewed today which demonstrate evidence for mild interphalangeal joint degenerative change. Radiocarpalmidcarpal and MCP joints are normal in appearance. Assessment: Diagnosis and Associated Orders ICD-10-CM 1. Trigger ring finger of right hand M65.341 Case Request OR - Orthopedic Surgery: Right middle andring finger trigger release Case Request OR - Orthopedic Surgery: Right middle and ring finger trigger release 2. Trigger middle finger of right hand M65.331 Case Request OR - Orthopedic Surgery: Right middle and ring finger trigger release Case Request OR - Orthopedic Surgery: Right middle and ring finger trigger release 3. Trigger ring finger of left hand M65.342 Plan: We discussed the patient's candidacy for right middle and ring finger trigger release under local only anesthetic. We will attempt to allow his left finger to be treated conservatively with an additional injection. Left ring flexor tendon sheath A1 elina injection: We discussed the therapeutic/diagnostic benefits of a corticosteroid injection for trigger fingers.Patient was agreeable and wished to proceed. The above finger(s) flexor tendon sheath at the A1 elina was injected with 3 mg of Celestone/ 1/2 cc 1% lidocaine local anesthetic under sterile conditions. The patient tolerated the procedure well. Post-injection instructions and expectations were discussed with the patient. We had an extended discussion concerning the diagnosis and prognosis; the treatment goals and choices (alternatives); the limitations and hazards of care; and the importance of therapy. I discussed the benefits, risks, and complications of surgery in detail, including but not limited to nerve, vessel, tendon damage; possible need for future surgery; risks of persistent or worsening pain, infection, and/or loss of function. Physical / hand therapy will be required after surgery to work on ROM and followed by progressive strengthening. The patient acknowledged an understanding and elected to proceed. Ramiro Danielle MD 06/19/2022, 1:55 PM UCT ASSEMBLER documented in this encounter Plan of Treatment Upcoming Encounters Date Type Department Care Team Description 03/11/2023 10:00 AM PRODUCT ASSEMBLER Appointment [facility] HDT Hand Therapy [address] [place] [phone] Jenn Haley, OTR/L [address] [place], [place] [phone] 04/13/2023 10:40 AM PRODUCT ASSEMBLER Appointment [facility] Orthopa[facility]ics & Sports Medicine [address] [place] [phone] Ramiro Danielle MD [address] [address] Scheduled Procedures Name Priority Associated Diagnoses Date/Ti me RELEASE TRIGGER FINGER Trigger ring finger of right hand Trigger middle finger of right hand documented as of this encounter Visit Diagnoses Diagnosis Trigger ring finger of right hand- Primary Trigger finger (acquired) Trigger middle finger of right hand Trigger finger (acquired) Trigger ring finger of left hand Trigger finger (acquired) documented in this encounter Care Teams Board Saw Runner Relationship Specialty Start Date End Date Saroj Angel DO [address] [facility] [address] [place] [address] PCP - General Family Practice 06/12/22 documented as of this encounter
--- OUTSIDE RECORDS SUMMARY | 2023-03-01 10:45 | XMS_ITS | Encounter Summary ---
Author Name Unknown Organization [facility] Address [address] [place] [address] Care Team Providers Care Superintendent Automotive Name Role Phone Saroj Angel DO Primary Care Provider [phone] Reason for Referral * (Routine) - New Request Specialty Diagnoses / Procedures Referred By Radha abarca Referred To Contact Diagnoses Trigger ring finger of right hand Procedures Betamethasone Acet&Sod Phosp (per 3 mg) Ramiro Danielle MD 1601 [facility] 200 [place] [address] Referral ID Status Reason Start Date Expiration Date V isits Requested Visits Authorized [id number] New Request 08/21/2022 11/20/2023 1 1 Reason for Visit * Reason Comments Follow-up Right hand pain and left ring finger trigger finger Encounter Details Date Type Department Care Team Description 08/21/2022 3:00 PM CDT Office Visit [place] [facility] 1601 [facility] [place] [address] Ramiro Danielle MD 1601 [facility] 200 [place] [address] Trigger middle finger of right hand (Primary Dx); Trigger ring finger of right hand; Trigger index finger of right hand; Trigger middle finger of left hand Social History Tobacco Use Types Packs/Day Years Used Date Smoking Tobacco: Never Assessed Sex and Gender Information Value Date Recorded Sex Assigned at Not on file Gender Identity Not on file Sexual Orientation Not on file documented as of this encounter Patient Instructions * Patient Instructions* Dena Gresham OA - 08/21/2022 3:00 PM CDT Thank you for choosing [facility] for your health care visit today. Ramiro Danielle MD Orthopedic Surgeon Upper Extremity [facility] Advanced Imaging Scheduling: To schedule advanced imaging including MRI's, CT Scans, Ultrasounds and Fluoroscopic guided injections at a [facility] location please call [phone]. Medication Requests: Prescriptions are not filled on weekends or on weekdays after 3:00 PM. For all medication refills: Request a refill using BuyItRideItt or contact your pharmacy. [facility] [employer] [address] [place], [place] [address] (Phone) Email: [email or web address] What is Know Your Cost? Know Your Cost is a service for patients and patient/members to call and receive personalized cost information and estimates across our care group. The phone number is (COST) Wednesday - Wednesday 8 AM to 5 PM Release of Information: Radiology/Imaging Health Information Management [address] [address] [place], [place] [id number] (Phone) [phone] (Phone) [employer] documented in this encounter Progress Notes * Ramiro Danielle MD - 08/21/2022 3:00 PM CDT Konstantin Lisa [id number] 1945 Date of Visit: 08/22/22 Orthopedic Hand and Upper Extremity Consultation Chief Complaint: Multiple fingers catching Interval history: Konstantin returns today to discuss his hands. He states that the injections that he would received with Dr. Hernandez seemed to help but only was temporary. Has continued locking and catching and would like to discuss his options. It is now present in numerous fingers on both hands. Initial History of Present Illness: Konstantin Lisa is a 77 y.o. male who presents for evaluation of his hands. [facility] lid [...] APB 5/5. 1st dorsal interossei 5/5. Right index middle and ring Finger; left ring finger: [...] Diagnosis and Associated Orders ICD-10-CM 1. Trigger middle finger of right hand M65.331 2. Trigger ring finger of right hand M65.341 Inject/Asp Small Joint Or Bursa,Eg Finger/T Betamethasone Acet&Sod Phosp (per 3 mg) 3. Trigger index finger of right hand M65.321 4. Trigger middle finger of left hand M65.332 Plan: A lengthy discussion was had with the patient regarding A1 elina release surgery vs. non-surgical treatment options. Patient understands the risks and benefits, including alternatives of surgical treatment, as well as expected postoperative recovery. Patient has had longstanding trigger fingers he is had numerous previous injections. He has obligations this summer and would like to give cortisone injections one additional try. I have suggested that this is all right and we will perform this today in each of his affected digits. However if he fails to get relief with this he would be better served by having them treated via A1 elina release surgery under local only anesthetic. He will follow up with me in the fall and attempt to put off surgery until then. Right index, middle, and ring, Left ring flexor tendon sheath A1 elina [...] and expectations were discussed with the patient. Ramiro Danielle MD 06/19/2022, 9:22 AM documented in this encounter Plan of Treatment Upcoming Encounters Date Type Department Care Team Description 03/11/2023 10:00 AM VICE PRESIDENT NETWORK [facility] [address] [place] [address] Jenn Haley, OTR/L [address] [facility] [place] [address] 04/13/2023 10:40 AM VICE PRESIDENT NETWORK Appointment [facility] [address] [place] [phone] Ramiro Danielle MD 1601 [facility] 200 [place] [address] Scheduled Procedures Name Priority Associated Diagnoses Date/Ti me RELEASE TRIGGER FINGER Trigger ring finger of right hand Trigger middle finger of right hand documented as of this encounter Visit Diagnoses Diagnosis Trigger middle finger of right hand- Primary Trigger finger (acquired) Trigger ring finger of right hand Trigger finger (acquired) Trigger index finger of right hand Trigger finger (acquired) Trigger middle finger of left hand Trigger finger (acquired) documented in this encounter Care Teams Superintendent Automotive Relationship Specialty Start Date End Date Saroj Angel DO [address] [facility] [address] [place] [address] PCP - General Family Practice 06/12/22 documented as of this encounter
--- OUTSIDE RECORDS SUMMARY | 2023-03-01 10:46 | XMS_ITS | Encounter Summary ---
Author Name Unknown Organization [facility] Address [address], [place] [address] Care Team Providers Care Combination Machine Tool Operator Name Role Phone Stanley Saroj Starks Primary Care Provider Reason for Visit * Reason Comments CONSULT Bilateral trigger fi ngers * Consult/Transfer Care (Routine) - New Request Specialty Diagnoses / Procedures Referred By Radha abarca Referred To Contact Orthopedics Diagnoses Primary osteoarthritis, right hand Trigger finger, right index finger Trigger finger, right middle finger Trigger finger, right ring finger Primary osteoarthritis, left hand Trigger finger, left middle finger Palmar fascial fibromatosis (dupuytren) Ambrosio Hernandez MD 3581 [facility] [address] [place] [address] Ramiro Danielle MD 1603 [facility] [address] [place] [address] Referral ID Status Reason Start Date Expiration Date V isits Requested Visits Authorized [id number] New Request 06/12/2022 09/11/2023 1 1 Encounter Details Date Type Department Care Team Description 06/19/2022 10:40 AM CDT Office Visit [facility] Orthopedics 1601 [facility] [place] [address] Ramiro Danielle MD 1607 [facility] [address] [place], [place] [phone] Trigger middle finger of right hand (Primary Dx); Trigger ring finger of right hand Social History Tobacco Use Types Packs/Day Years Used Date Smoking Tobacco: Never Assessed Sex and Gender Information Value Date Recorded Sex Assigned at Not on file Gender Identity Not on file Sexual Orientation Not on file documented as of this encounter Patient Instructions * Patient Instructions* Dena Gresham OA - 06/19/2022 10:40 AM CDT Thank you for choosing [facility] for your health care visit today. Ramiro Danielle MD Orthopedic Surgeon Upper Extremity [facility] Advanced Imaging Scheduling: To schedule advanced imaging including MRI's, CT Scans, Ultrasounds and Fluoroscopic guided injections at a [place] location please call [phone]. Medication Requests: Prescriptions are not filled on weekends or on weekdays after 3:00 PM. For all medication refills: Request a refill using Offermatict or contact your pharmacy. [facility] [employer] [address] [place] [address] (Phone) Email: [email or web address] What is Know Your Cost? Know Your Cost is a service for patients and patient/members to call and receive personalized cost information and estimates across our care group. The phone number is (COST) Wednesday - Wednesday 8 AM to 5 PM Release of Information: Radiology/Imaging Health Information Management [address] [place] [address] [place] [address] (Phone) [phone] (Phone) [employer] documented in this encounter Progress Notes * Ramiro Danielle MD - 06/19/2022 10:40 AM CDT Konstantin Lisa [id number] 1945 Date of Visit: 06/19/22 Orthopedic Hand and Upper Extremity Consultation Chief Complaint: Multiple fingers catching History of Present Illness: Konstantin Lisa is a 77 y.o. male who presents for evaluation of his hands. [facility] [...] injection but maybe only lasted for the 1st 4 weeks or so. He now reports ongoing catching and locking worse within his middle and ring finger. Occupation/Hobbies: Patient is retired. He stays active by mowing [employer] and works with his sons yd.He is [...] dorsal interossei 5/5. Right middle and ring Finger: Insp/Palp: Firm, non-mobile, tender, and nonadherent to [...] Trigger ring finger of right hand M65.341 Plan: A lengthy discussion was had with the patient regarding A1 elina release surgery vs. non-surgical treatment options. Patient understands the risks and benefits, including alternatives of surgical treatment, as well as expected postoperative recovery. At this time the patient would like to proceed with continued conservative management. I recommend the use of ice, anti-inflammatory medications, and cortisone injection for the conservative treatment of stenosing tenosynovitis of the finger. He did just have injections with Dr. Hernandez at the end of April and therefore is going to simply use topical anti-inflammatories such as Voltaren as well as ice. He does not want to proceed with surgery at this time because he does not want to give up some of his spring time hobbies of mowing the grass and using a push mower. He is going to observe his symptoms and will contact my office if he wishes to proceed with repeat injection or surgery in the future Ramiro Danielle MD 06/19/2022, 11:08 AM documented in this encounter Plan of Treatment Upcoming Encounters Date Type Department Care Team Description 03/11/2023 10:00 AM LEAD PRINTER [facility] [address] [place] [address] Jenn Haley, OTR/L [address] [place], [place] [phone] 04/13/2023 10:40 AM LEAD PRINTER Appointment [facility] [address] [place] [address] Ramiro Danielle MD 1601 [facility] [address] [place] [address] Scheduled Procedures Name Priority Associated Diagnoses Date/Ti me RELEASE TRIGGER FINGER Trigger ring finger of right hand Trigger middle finger of right hand documented as of this encounter Visit Diagnoses Diagnosis Trigger middle finger of right hand- Primary Trigger finger (acquired) Trigger ring finger of right hand Trigger finger (acquired) documented in this encounter Care Teams Combination Machine Tool Operator Relationship Specialty Start Date End Date Saroj Angel DO [address] [address] PCP - General Family Practice 06/12/22 documented as of this encounter
--- OUTSIDE RECORDS SUMMARY | 2023-03-01 10:46 | XMS_ITS | Encounter Summary ---
Author Name Unknown Organization [facility] Address [address], [place] [address] Care Team Providers Care Medical Librarian Name Role Phone Adolfo Maloney MD Primary Care Provider Unav ailable Reason for Visit * Procedure/Equipment (Routine) - Incomplete Specialty Diagnoses / Procedures Referred By Radha t Referred To Contact Procedures Foreign Image(S) XR Hand Rt Provider, Foreign Images [address] [place] [address] Referral ID Status Reason Start Date Expiration Date V isits Requested Visits Authorized [id number] Incomplete 06/19/2022 09/18/2023 1 1 Encounter Details Date Type Department Care Team Description 03/22/2022 10:45 AM COMMUTER PILOT Ancillary Procedure [facility] PACS [address] [place] [address] Provider, Foreign Images [address] [place] [address] Social History Tobacco Use Types Packs/Day Years Used Date Smoking Tobacco: Never Assessed Sex and Gender Information Value Date Recorded Sex Assigned at Not on file Gender Identity Not on file Sexual Orientation Not on file documented as of this encounter Plan of Treatment Upcoming Encounters Date Type Department Care Team Description 03/11/2023 10:00 AM COMMUTER PILOT Appointment [facility] Hand Therapy [address] [place] [address] Jenn Haley, OTR/L [address] [place], [place] [phone] 04/13/2023 10:40 AM COMMUTER PILOT Appointment [facility] [address] [place] [address] Ramiro Danielle MD [address] [facility] [address] [place] [address] Scheduled Procedures Name Priority Associated Diagnoses Date/Ti me RELEASE TRIGGER FINGER Trigger ring finger of right hand Trigger middle finger of right hand documented as of this encounter Procedures Procedure Name Priority Date/Time Associated Diagnosis Comments FOREIGN IMAGE(S) XR HAND RT Routine 03/22/2022 10:45 AM COMMUTER PILOT documented in this encounter Results * Foreign Image(S) XR Hand Rt (03/22/2022 10:45 AM COMMUTER PILOT) Narrative POCT - 06/19/2022 10:41 AM CDT These outside images have been uploaded into PACS. If the results were provided, they will be located in the patient's chart under the Media or Imaging tab. Foreign Images Provider RAD NON-REPORTAB LES POCT documented in this encounter Visit Diagnoses Not on filedocumented in this encounter Care Teams Medical Librarian Relationship Specialty Start Date End Date Adolfo Maloney MD PCP - General 05/20/10 06/10/22 documented as of this encounter
--- NOTE | 2023-03-01 11:00 | CRLHL7_ITS ---
For Patients: As a result of the Century Cures Act, medical imaging exams and procedure reports are released immediately into your electronic medical record. You may view this report before your referring provider. If you have questions, please contact your health care provider. INDICATION: Hematuria for 10 days. TECHNIQUE: Volumetric helical scanning of the abdomen and pelvis was performed initially without contrast material. 100 cc of Omnipaque 350 contrast material were then injected IV in two 50 cc boluses 5 minutes apart. Ninety seconds following the second bolus, scanning of the abdomen and pelvis was repeated. Coronal and sagittal reconstructions were obtained. COMPARISON: None. FINDINGS: No urinary tract stone or obstruction is demonstrated. Benign-appearing right renal parenchymal cysts are demonstrated, the largest measuring up to 6.5 cm in diameter. The kidneys are otherwise negative. The excretory images demonstrate no filling defect in either collecting system, either ureter or in the partially filled bladder. The prostate has been removed. The liver is normal in size, shape and attenuation. Stones are noted in the gallbladder. No bile duct dilation is evident. The spleen is within normal limits. The adrenal glands are unremarkable. The pancreas is within normal limits. No lymphadenopathy is evident. No free fluid is demonstrated. The bowel is unremarkable except for sigmoid diverticulosis. The lung bases are clear, and heart size is normal. IMPRESSION: 1. Negative CT urogram except for benign right renal cysts. 2. Post prostatectomy. 3. Cholelithiasis. 4. Sigmoid diverticulosis. Please note that all CT scans at this facility use dose modulation, iterative reconstruction, and/or weight-based dosing when appropriate to reduce radiation dose to as low as reasonably achievable. Dictated by Marko Coon MD @ 03/01/2023 3:44:40 PM (Electronically Signed)
== END 2023-03-01 10:34 | disposition home or self-care (01) ==
LOC: CT 10:35
PROVIDERS: Visit Provider Physician Assistant
DX: R31.9 Hematuria, unspecified (principal); N28.1 Cyst of kidney, acquired; K80.20 Calculus of gallbladder without cholecystitis without obstruction; K57.30 Diverticulosis of large intestine without perforation or abscess without bleeding
CPT/HCPCS: 74178; Q9967

== ENCOUNTER 2023-05-04 10:00 | Outpatient (RCR) | payer MEDICARE, BC, SELFPAY ==
[2022-11-05 13:30] VITALS: BP 125/77; PULSE 79; RESP 16; TEMP 36.6; O2SAT 99
[2022-11-05 14:47] LABS: PSA Diagnostic* < 0.06 ng/mL (0.10-4.00)
--- NOTE | 2023-02-11 13:33 | ONC.NURNOTE ---
Addendum entered by Jacey Abrams RN 02/16/23 14:14: Late Entry: Patient phoned back and had called Dr Calle's office at [facility]- and was informed that he should contact our office lead technical writer spoke with Ely Chapman PAC- lab and urine orders received and follow up appt scheduled instructed to go to ED for follow up is bleeding worsens and if any symptoms of lightheadedness, heart racing patient here today for lab and urine Original Note: Patient left message on VM that he was experiencing bleeding- and was requesting urgent provider visit lead technical writer phoned back and got his voicemail message left to either call PCP or go to the ED for urgent care of new symptoms
[2023-02-16 13:54] LABS: Basophils Absolute Auto 0.02 K/uL (0.00-0.30); Basophils Percent Auto 0.4 % (0.0-3.0); Eosinophils Percent Auto 3.5 % (0.0-7.0); Hematocrit 36.4 % (37.0-53.0); Immature Granulocytes Abs Auto 0.03 K/uL (0.00-0.30); Immature Granulocytes Pct Auto 0.5 %; Lymphocytes Absolute Auto 1.19 K/uL (0.90-2.90); Lymphocytes Percent Auto 20.8 % (20-44); Mean Corpuscular HGB Conc 33 gm/dL (32-36); Mean Corpuscular Hemoglobin 30 pg (26-34); Mean Corpuscular Volume 92 fL (80-100); Monocytes Percent Auto 6.7 % (0.0-11.0); Neutrophils Absolute Auto 3.89 K/uL (1.7-7.0); Neutrophils Percent Auto 68.1 % (42.0-72.0); Platelet Count* 180 K/uL (140-440); RDW Coefficient of Variation % 12.8 % (11.5-15.5); Red Blood Count 3.96 m/uL (4.30-5.90); White Blood Count* 5.71 K/uL (4.50-11.00)
[2023-02-16 14:01] LABS: Slide Review Reflex No
[2023-02-16 14:14] LABS: Albumin* 4.2 g/dL (3.3-5.0); Chloride* 107 mmol/L (96-114); Potassium* 4.4 mmol/L (3.6-5.1); Sodium* 140 mmol/L (135-149)
[2023-02-16 14:16] LABS: Bilirubin Total* 0.6 mg/dL (0.1-1.5); Creatinine* 1.3 mg/dL (0.5-1.5); Estimated Glomerular Filt Rate 57 ml/min
[2023-02-16 14:17] LABS: Alanine Aminotransferase* 31 U/L (4-50); Alkaline Phosphatase* 67 U/L (40-150); Anion Gap 7 mEq/L (7-15); Aspartate Amino Transferase* 36 U/L (12-35); Blood Urea Nitrogen* 26 mg/dL (7-30); Calcium* 9.2 mg/dL (8.4-10.6); Carbon Dioxide* 26 mmol/L (20-32); Glucose* 104 mg/dL (60-115); Total Protein* 7.1 g/dL (6.0-8.3)
[2023-02-16 14:58] LABS: PSA Diagnostic* < 0.06 ng/mL (0.10-4.00)
[2023-02-16 15:05] LABS: Appearance Urine Clear (Clear); Bilirubin Urine Negative (Negative); Blood Urine Negative (Negative); Color Urine Yellow (Yellow); Glucose Urine Negative (Negative); Ketones Urine 1+ (Negative); Leukocyte Esterase Urine Negative (Negative); Nitrite Urine Negative (Negative); Protein Urine Negative (Negative); Specific Gravity Urine >= 1.030 (1.000-1.030); Urobilinogen Urine 0.2 (0.2-1.0); pH Urine 5.5 (5.0-8.5)
[2023-02-16 15:19] LABS: RBC Urine 0-2 (0-2); WBC Urine 0-2 (0-5)
[2023-02-16 15:20] LABS: Squamous Epithelial Cell Urine Few (None-Few)
--- NOTE | 2023-04-28 11:16 | URNOTE ---
Request received for authorization for Leuprolide Acetate ([facility]) ([id number]). Prior authorization is not required as services are based on medical necessity and follow Medicare guidelines.
[2023-05-04 10:22] LABS: Basophils Absolute Auto 0.01 K/uL (0.00-0.30); Basophils Percent Auto 0.1 % (0.0-3.0); Eosinophils Absolute Auto 0.17 K/uL (0.00-0.50); Eosinophils Percent Auto 2.4 % (0.0-7.0); Hematocrit 38.2 % (37.0-53.0); Hemoglobin* 12.7 gm/dL (13.5-17.5); Immature Granulocytes Abs Auto 0.07 K/uL (0.00-0.30); Lymphocytes Absolute Auto 1.52 K/uL (0.90-2.90); Lymphocytes Percent Auto 21.5 % (20-44); Mean Corpuscular HGB Conc 33 gm/dL (32-36); Mean Corpuscular Hemoglobin 31 pg (26-34); Mean Corpuscular Volume 92 fL (80-100); Monocytes Percent Auto 9.2 % (0.0-11.0); Neutrophils Absolute Auto 4.66 K/uL (1.7-7.0); Neutrophils Percent Auto 65.8 % (42.0-72.0); Platelet Count* 204 K/uL (140-440); RDW Coefficient of Variation % 13.1 % (11.5-15.5); Red Blood Count 4.14 m/uL (4.30-5.90); White Blood Count* 7.08 K/uL (4.50-11.00)
[2023-05-04 10:23] LABS: Slide Review Reflex No
[2023-05-04 10:38] LABS: Albumin* 4.2 g/dL (3.3-5.0); Chloride* 105 mmol/L (96-114); Potassium* 3.9 mmol/L (3.6-5.1); Sodium* 139 mmol/L (135-149)
[2023-05-04 10:41] LABS: Alanine Aminotransferase* 25 U/L (4-50); Alkaline Phosphatase* 69 U/L (40-150); Anion Gap 9 mEq/L (7-15); Aspartate Amino Transferase* 29 U/L (12-35); Bilirubin Total* 0.7 mg/dL (0.1-1.5); Blood Urea Nitrogen* 38 mg/dL (7-30); Calcium* 9.2 mg/dL (8.4-10.6); Carbon Dioxide* 25 mmol/L (20-32); Creatinine* 1.6 mg/dL (0.5-1.5); Estimated Glomerular Filt Rate 44 ml/min; Glucose* 101 mg/dL (60-115)
[2023-05-04 11:54] LABS: PSA Diagnostic* < 0.06 ng/mL (0.10-4.00)
== END 2023-05-04 23:59 | disposition home or self-care (01) ==
LOC: CCIC 10:00
PROVIDERS: Physician Assistant; Visit Provider Internal Medicine Hematology & Oncology
DX: C61 Malignant neoplasm of prostate (principal); C79.51 Secondary malignant neoplasm of bone; R31.9 Hematuria, unspecified; D64.9 Anemia, unspecified; R23.2 Flushing; K59.00 Constipation, unspecified; I10 Essential (primary) hypertension; E78.5 Hyperlipidemia, unspecified; N36.8 Other specified disorders of urethra
CPT/HCPCS: 36415; 80053; 81001; 84153; 85025; 88112; 96401; 99212; 99214; 99215; G0463; J9217

== ENCOUNTER 2024-04-14 10:00 | Outpatient (RCR) | payer MEDICARE, BC, SELFPAY ==
[2023-10-26 10:29] LABS: Basophils Absolute Auto 0.02 K/uL (0.00-0.30); Basophils Percent Auto 0.4 % (0.0-3.0); Eosinophils Absolute Auto 0.22 K/uL (0.00-0.50); Eosinophils Percent Auto 4.1 % (0.0-7.0); Hematocrit 36.9 % (37.0-53.0); Immature Granulocytes Abs Auto 0.01 K/uL (0.00-0.30); Immature Granulocytes Pct Auto 0.2 %; Lymphocytes Absolute Auto 1.16 K/uL (0.90-2.90); Lymphocytes Percent Auto 21.6 % (20-44); Mean Corpuscular HGB Conc 33 gm/dL (32-36); Mean Corpuscular Hemoglobin 30 pg (26-34); Mean Corpuscular Volume 92 fL (80-100); Neutrophils Absolute Auto 3.53 K/uL (1.7-7.0); Neutrophils Percent Auto 65.7 % (42.0-72.0); Platelet Count* 179 K/uL (140-440); RDW Coefficient of Variation % 12.7 % (11.5-15.5); Red Blood Count 4.03 m/uL (4.30-5.90); White Blood Count* 5.37 K/uL (4.50-11.00)
[2023-10-26 10:43] LABS: Albumin* 4.3 g/dL (3.3-5.0); Chloride* 107 mmol/L (96-114); Slide Review Reflex No; Sodium* 139 mmol/L (135-149)
[2023-10-26 10:44] LABS: Potassium* 3.9 mmol/L (3.6-5.1)
[2023-10-26 10:46] LABS: Alanine Aminotransferase* 22 U/L (4-50); Alkaline Phosphatase* 68 U/L (40-150); Anion Gap 9 mEq/L (7-15); Aspartate Amino Transferase* 30 U/L (12-35); Bilirubin Total* 0.9 mg/dL (0.1-1.5); Blood Urea Nitrogen* 22 mg/dL (7-30); Calcium* 9.4 mg/dL (8.4-10.6); Carbon Dioxide* 23 mmol/L (20-32); Creatinine* 1.4 mg/dL (0.5-1.5); Estimated Glomerular Filt Rate 52 ml/min; Glucose* 122 mg/dL (60-115)
[2023-10-26 11:21] LABS: PSA Diagnostic* < 0.06 ng/mL (0.10-4.00)
[2024-04-14 10:35] LABS: Basophils Absolute Auto 0.01 K/uL (0.00-0.30); Basophils Percent Auto 0.2 % (0.0-3.0); Eosinophils Absolute Auto 0.12 K/uL (0.00-0.50); Eosinophils Percent Auto 2.4 % (0.0-7.0); Hematocrit 35.7 % (37.0-53.0); Hemoglobin* 11.5 gm/dL (13.5-17.5); Immature Granulocytes Abs Auto 0.01 K/uL (0.00-0.30); Immature Granulocytes Pct Auto 0.2 %; Lymphocytes Percent Auto 18.9 % (20-44); Mean Corpuscular HGB Conc 32 gm/dL (32-36); Mean Corpuscular Hemoglobin 29 pg (26-34); Mean Corpuscular Volume 90 fL (80-100); Neutrophils Absolute Auto 3.45 K/uL (1.7-7.0); Neutrophils Percent Auto 69.3 % (42.0-72.0); Platelet Count* 179 K/uL (140-440); RDW Coefficient of Variation % 12.6 % (11.5-15.5); Red Blood Count 3.95 m/uL (4.30-5.90); White Blood Count* 4.98 K/uL (4.50-11.00)
[2024-04-14 10:39] LABS: Slide Review Reflex No
[2024-04-14 10:51] LABS: Albumin* 4.3 g/dL (3.3-5.0); Chloride* 105 mmol/L (96-114); Potassium* 4.2 mmol/L (3.6-5.1); Sodium* 139 mmol/L (135-149)
[2024-04-14 10:53] LABS: Anion Gap 8 mEq/L (7-15); Aspartate Amino Transferase* 27 U/L (12-35); Bilirubin Total* 0.9 mg/dL (0.1-1.5); Blood Urea Nitrogen* 22 mg/dL (7-30); Carbon Dioxide* 26 mmol/L (20-32); Creatinine* 1.5 mg/dL (0.5-1.5); Est. Creatinine Clearance* 43.93; Estimated Glomerular Filt Rate 48 ml/min
[2024-04-14 10:54] LABS: Alanine Aminotransferase* 21 U/L (4-50); Alkaline Phosphatase* 69 U/L (40-150); Calcium* 9.4 mg/dL (8.4-10.6); Glucose* 99 mg/dL (60-115); Total Protein* 7.2 g/dL (6.0-8.3)
[2024-04-14 11:28] LABS: PSA Diagnostic* < 0.06 ng/mL (0.10-4.00)
== END 2024-04-23 23:59 | disposition home or self-care (01) ==
LOC: CCIC 10:00
PROVIDERS: Visit Provider Internal Medicine Hematology & Oncology
DX: C61 Malignant neoplasm of prostate (principal)
CPT/HCPCS: 36415; 80053; 84153; 85025; 96401; 99214; G0463; J9217

== ENCOUNTER 2024-10-18 13:00 | Outpatient (RCR) | payer MEDICARE, BC, SELFPAY ==
[2024-04-25] MEDS: LEUPROLIDE ACETATE (ELIGARD) 45 MG SYRINGE SUBCUT (11:57)
[2024-10-18 13:05] LABS: Hematocrit 36.2 % (37.0-53.0); Hemoglobin* 11.8 gm/dL (13.5-17.5); Immature Granulocytes Abs Auto 0.00 K/uL (0.00-0.30); Immature Granulocytes Pct Auto 0.0 %; Mean Corpuscular HGB Conc 33 gm/dL (32-36); Mean Corpuscular Hemoglobin 29 pg (26-34); Mean Corpuscular Volume 90 fL (80-100); RDW Coefficient of Variation % 13.7 % (11.5-15.5); Red Blood Count 4.01 m/uL (4.30-5.90); White Blood Count* 5.67 K/uL (4.50-11.00)
[2024-10-18 13:06] LABS: Lymphocytes Absolute Auto 1.00 K/uL (0.90-2.90); Slide Review Reflex No
[2024-10-18 13:28] LABS: Albumin* 4.2 g/dL (3.3-5.0); Chloride* 105 mmol/L (96-114); Potassium* 4.4 mmol/L (3.6-5.1); Sodium* 138 mmol/L (135-149)
[2024-10-18 13:30] LABS: Blood Urea Nitrogen* 27 mg/dL (7-30); Creatinine* 1.4 mg/dL (0.5-1.5); Est. Creatinine Clearance* 46.32; Estimated Glomerular Filt Rate 51 ml/min
[2024-10-18 13:31] LABS: Alanine Aminotransferase* 22 U/L (4-50); Alkaline Phosphatase* 59 U/L (40-150); Anion Gap 7 mEq/L (7-15); Aspartate Amino Transferase* 33 U/L (12-35); Bilirubin Total* 0.7 mg/dL (0.1-1.5); Calcium* 9.4 mg/dL (8.4-10.6); Carbon Dioxide* 26 mmol/L (20-32); Glucose* 110 mg/dL (60-115); Total Protein* 7.0 g/dL (6.0-8.3)
[2024-10-18 14:08] LABS: PSA Diagnostic* < 0.06 ng/mL (0.10-4.00)
== END 2024-10-22 23:59 | disposition home or self-care (01) ==
LOC: CCIC 13:00
PROVIDERS: Visit Provider Internal Medicine Hematology & Oncology
DX: C61 Malignant neoplasm of prostate (principal); C79.51 Secondary malignant neoplasm of bone
CPT/HCPCS: 36415; 80053; 84153; 85025; 96402; 99213; 99214; G0463; J9217

== ENCOUNTER 2024-10-18 13:01 | Outpatient (CLI) | payer MEDICARE, BC, SELFPAY ==
--- NOTE | 2024-10-18 13:30 | CRLHL7_ITS ---
For Patients: As a result of the Century Cures Act, medical imaging exams and procedure reports are released immediately into your electronic medical record. You may view this report before your referring provider. If you have questions, please contact your health care provider. XR DXA Bone Mineral Density (BMD) Reason for exam: Malignant neoplasm of prostate. Current height (inches): 71.0 Weight (lbs.): 193.0 Menopause age: Not applicable Ethnicity: White 1. Have you had a previous hip or vertebral fracture? No. 2. Have you had any fractures during your adult life which did not result from significant trauma (e.g., auto accident)? No. 3. Did either of your parents have a hip fracture? Yes. 4. Do you smoke? No. 5. Have you ever taken Glucocorticoids? No. 6. Do you have rheumatoid arthritis? No. 7. Do you have secondary osteoporosis? No. 8. Do you drink 3 or more alcoholic drinks per day? No. 9. Are you being treated for osteoporosis? No. 10. Have you ever taken any of the following medications: Actonel, Evista, Fosamax, Miacalcin, Reclast, Boniva, Forteo, HRT (i.e., estrogen/hormone therapy), Protelos, Prolia, Vitamin D, Calcium, other ??? please specify. ANSWER: Yes; vitamin D and calcium. 11. Do you have any of the following medical conditions: Anorexia or bulimia, asthma or emphysema, end stage renal disease, hyperparathyroidism, any seizure disorders, cancer, inflammatory bowel diseases, hysterectomy, other ??? please specify. ANSWER: Yes; cancer. 12. What was your maximum height (inches)? 72. 13. Do you perform weightbearing exercise regularly? No. 14. Do you regularly consume dairy products? Yes. 15. Do you drink caffeinated beverages? Yes. TECHNIQUE: Bone mineral density study was performed using the [employer]. FINDINGS: The results of the study expressed as bone mineral density (BMD) are as follows: Lumbar Spine L1 to L4: BMD: 1.116 g/cm2. T-score: 0.2. Z-score: 1.3. Neck Left: BMD: 0.798 g/cm2. T-score: -1.0. Z-score: 0.5. Total Left: BMD: 0914 g/cm2. T-score: -0.8. Z-score: 0.2. IMPRESSION: Normal bone density. COMPARISON: Compared with scan of 06/18/2022, the bone mineral density has increased by 2.5% at the spine and decreased by 3.5% at the hip. *Comparison exams done prior to 07/2019 were performed on different unit, [facility]. DM GUARDADO M.D. Diagnostic Radiologist [email or web address] Transcribed: 6:[address]/Dictated by: Dm Guardado MD @ 10/18/2024 2:25:00 PM (Electronically Signed)
== END 2024-10-18 13:02 | disposition home or self-care (01) ==
LOC: RAD 13:02
PROVIDERS: Visit Provider Internal Medicine Hematology & Oncology
DX: C61 Malignant neoplasm of prostate (principal); C79.51 Secondary malignant neoplasm of bone; Z79.818 Long term (current) use of other agents affecting estrogen receptors and estrogen levels; D64.9 Anemia, unspecified; R23.2 Flushing; K59.00 Constipation, unspecified
CPT/HCPCS: 36415; 77080; 80053; 84153; 85025

== ENCOUNTER 2024-10-25 08:24 | Outpatient (CLI) | payer MEDICARE, BC, SELFPAY ==
--- NOTE | 2024-10-25 09:00 | CRLHL7_ITS ---
For Patients: As a result of the Cures Act, medical imaging exams and procedure reports are released immediately into your electronic medical record. You may view this report before your referring provider. If you have questions, please contact your health care provider. Indication: ABD PAIN LOWER, N/V Technique: CT Abdomen/Pelvis 95CC ISOVUE 370 intravenous contrast Please note that all CT scans at this facility use dose modulation, iterative reconstruction, and/or weight-based dosing when appropriate to reduce radiation dose to as low as reasonably achievable. Comparison: 03/01/2023 Findings: Mild scarring within the right lower lobe. No pleural effusion. No intrahepatic mass. Numerous calcified stones are again noted within the gallbladder. Splenic calcified granulomas are present, as before. No adrenal nodule. Multiple water attenuation benign right renal cysts are present which measure up to 6.8 cm. Normal left kidney. Pancreas is within normal limits. Atherosclerotic changes. No aneurysm. No hiatal hernia. A few scattered subcentimeter retroperitoneal lymph nodes are incidentally noted and unchanged. No pelvic or inguinal adenopathy. No enlarged mesenteric lymph nodes. A small incidental duodenal diverticulum is present. Bladder is incompletely distended. Sigmoid diverticulosis. No diverticulitis. No bowel obstruction or free air. No free fluid. No abscess. Grade 1 degenerative spondylolisthesis of L4 on L5. No vertebral body compression fracture. Postop changes to the lower abdominal wall. Right hip replacement hardware. Impression: Stable postop changes of prostatectomy. No evidence of metastatic disease. Stable simple right renal cysts. Chronic cholelithiasis. Mild sigmoid diverticulosis, unchanged. Please note that all CT scans at this facility use dose modulation, iterative reconstruction, and/or weight-based dosing when appropriate to reduce radiation dose to as low as reasonably achievable. Dictated by Dm Ortega MD @ 10/25/2024 10:23:20 AM (Electronically Signed)
== END 2024-10-25 08:25 | disposition home or self-care (01) ==
PROVIDERS: Visit Provider Internal Medicine Hematology & Oncology
DX: C61 Malignant neoplasm of prostate (principal); C79.51 Secondary malignant neoplasm of bone; N28.1 Cyst of kidney, acquired; K80.20 Calculus of gallbladder without cholecystitis without obstruction; K57.30 Diverticulosis of large intestine without perforation or abscess without bleeding; R10.9 Unspecified abdominal pain; R11.2 Nausea with vomiting, unspecified
CPT/HCPCS: 74177; Q9967